=== PATIENT | male | born 1970 | race Caucasian/White ===

== ENCOUNTER → 2018-06-29 | Outpatient (CLI) | payer OTHER ==
--- NOTE | 2018-07-01 16:40 | TST ---
[place] [address] TREADMILL STRESS TEST Name: SURJIT OCHOA Room: [facility]#: [id number] Admission: 06/29/18 Attend Phys: Sofy Pemberton Discharge: Date of : 74 Date of Service: 06/29/18 1628 Report #: [id number] THIS REPORT FOR: //name// CC: Isidro Thurman DATE OF SERVICE: 06/29/2018 EXERCISE STRESS TEST INDICATIONS: Exercise stress test was requested in this patient with a family history of coronary artery disease. RESULTS: The patient was exercised on a Cornel protocol from a Pretest heart rate of 73, blood pressure 162/105. The patient was able to exercise for 9 minutes 20 seconds achieving a peak heart rate of 188, which was greater than 90% of maximum predicted heart rate for the patient's age. The peak blood pressure was 207/106. In recovery, the patient had a heart rate of 92, blood pressure of 168/99. The patient denied chest pain and exercise was terminated due to achieving target heart rate and elevated blood pressure. The patient's resting ECG showed a normal sinus rhythm with no significant ST or T-wave change noted at baseline. With exercise, there was occasional PAC and PVC. The patient did develop upsloping ST-segment depression with exercise in addition to occasional PVC. At peak exercise, the patient was noted to have 0.[address] segment depression in lead V4, V5 and V6. The ST-segment changes resolved during recovery. There was occasional PVC noted during recovery period. IMPRESSION: 1. Adequate exercise tolerance. 2. No chest pain with exercise. 3. Occasional premature ventricular contraction noted with exercise and during recovery. 4. Nondiagnostic ST-segment changes noted with exercise. 5. Nondiagnostic exercise stress test for myocardial ischemia secondary to nondiagnostic ST-segment changes noted. 6. Indeterminate risk exercise stress test for predicting future cardiac events secondary to nonspecific ST-segment changes. <ELECTRONICALLY SIGNED> By: Surjit Masters MD, FACC 07/01/18 1640 1628 0210 Surjit Masters MD, FACC /nt
== END ==
LOC: M.CRD 14:39
DX: R42 Dizziness and giddiness (principal); I10 Essential (primary) hypertension; R00.0 Tachycardia, unspecified